=== PATIENT | male | born 1970 | race African-American/Black ===

== ENCOUNTER 2016-11-11 16:32 | Emergency (ER) | payer OTHER ==
[~2016-11-11] VITALS: Ht 180.3 cm; Wt 110.9 kg
[2016-11-11] MEDS ORDERED: ONDANSETRON 2MG/ML, 2ML IVPush ONE (17:00)
[2016-11-11] MEDS ORDERED: PLEASE ENTER ALLERGIES MC SCH ×2 (17:00)
[2016-11-11] MEDS ORDERED: SODIUM CHLORIDE FLUSH 10ML SYR IVF ONE ×2 (17:00)
[2016-11-11] MEDS ORDERED: NITROGLYCERIN SINGLE TAB 0.4 MG SL PRN (17:00)
[2016-11-11] MEDS ORDERED: [UNRECOGNIZED DRUG - REMARK] MC SCH (17:00)
[2016-11-11] MEDS ORDERED: SODIUM CHLORIDE 0.9% 1,000ML IVBOLUS ONE ×2 (17:00→18:30)
[2016-11-11] MEDS ORDERED: MORPHINE SULFATE 4 MG/ML, 1ML IVPush PRN (17:00)
[2016-11-11 17:09] LABS: BLOOD UREA NITROGEN 18 mg/dL (7-18)
[2016-11-11 17:14] LABS: IS PT STATUS REG ER OR PRE ER? YES
[2016-11-11 17:31] LABS: GIANT PLATELETS 1+; LARGE PLATELETS 1+
[2016-11-11 19:26] VITALS: BP 121/82
[2016-11-11 21:11] LABS: PATH.CAST-FLAG NOT PRESENT; SPERM-FLAG NOT PRESENT; SRC-FLAG NOT PRESENT; XTAL-FLAG NOT PRESENT; YLC-FLAG NOT PRESENT
== END 2016-11-11 20:49 | disposition home or self-care (01) ==
LOC: ED 18:08
DX: E11.65 Type 2 diabetes mellitus with hyperglycemia (principal)
CPT/HCPCS: 36415; 80048; 81001; 82010; 82040; 82800; 82962; 83880; 84484; 85025; 93005; 96360; 96361; 99285; J7030

== ENCOUNTER 2018-03-31 01:25 | Emergency (ER) | payer OTHER ==
[~2018-03-31] VITALS: Ht 193 cm; Wt 114.0 kg
[2018-03-31 01:29] VITALS: BP 137/99
[2018-03-31] MEDS ORDERED: LIDOCAINE 1%-EPI 1:100K, 30ML ONE (01:47)
[2018-03-31] MEDS ORDERED: BENZOCAINE 20% SPRAY 0.5ML ONE ×2 (01:47→01:48)
[2018-03-31] MEDS ORDERED: LIDOCAINE 1%-EPI 1:100K, 20ML INFIL ONE (02:00)
[2018-03-31] MEDS ORDERED: BENZOCAINE 20% SPRAY 0.5ML TP ONE (02:00)
[2018-03-31] MEDS ORDERED: AMOXICILLIN/CLAV 875-125MG TABLET ONE (02:27)
[2018-03-31] MEDS ORDERED: ONDANSETRON ODT 4 MG ONE (02:27)
[2018-03-31] MEDS ORDERED: DEXAMETHASONE 4 MG TABLET ONE (02:27)
[2018-03-31] MEDS ORDERED: IBUPROFEN 600 MG TABLET ONE (02:27)
[2018-03-31] MEDS ORDERED: IBUPROFEN 200 MG TABLET PO ONE (02:30)
[2018-03-31] MEDS ORDERED: DEXAMETHASONE 4 MG TABLET PO ONE (02:30)
[2018-03-31] MEDS ORDERED: ONDANSETRON ODT 4 MG PO ONE (02:30)
[2018-03-31] MEDS ORDERED: AMOXICILLIN/CLAV 875-125MG TABLET PO ONE (02:30)
[2018-03-31] MEDS ORDERED: CEFTRIAXONE 1,000 MG ONE (02:47)
[2018-03-31] MEDS ORDERED: CEFTRIAXONE 1,000 MG IM ONE (03:00)
== END 2018-03-31 03:08 | disposition home or self-care (01) ==
LOC: ED 02:21
DX: J36 Peritonsillar abscess (principal); E11.9 Type 2 diabetes mellitus without complications
CPT/HCPCS: 42700; 87070; 87205; 96372; 99284; J0696; J3490; Q0162; 99283

== ENCOUNTER 2019-05-18 16:09 | Emergency (ER) | payer OTHER ==
[~2019-05-18] VITALS: Ht 190.5 cm; Wt 111.9 kg
[2019-05-18] MEDS ORDERED: METF500T17 PO (19:32)
--- NOTE | 2019-05-18 19:32 | NUR ---
PT STATED BLOOD SUGAR WAS 290 SOMETHING THIS AM. HAS HAD FREQUENT URINATION LAST FEW DAYS, H/X T2DM. PROVIDED PT WITH GOWN, MONITORS APPLIED, SIDERAILS UP X2, CALL LIGHT WITHIN REACH. ERP AT BEDSIDE FOR EVAL
--- NOTE | 2019-05-18 19:47 | NUR ---
IV SITE STARTED, LABS DRAWN, IV FLUIDS STARTED. PROVIDED PT WITH URINE CUP FOR SAMPLE, PT STATED HE DOES NOT NEED TO URINATE AT THIS TIME THAT HE NEEDS 5 MINUTES. AWAITING LAB RESULTS
[2019-05-18 19:50] LABS: PH, VENOUS 7.398 pH (7.320-7.420)
[2019-05-18 19:56] LABS: BASOPHILS # (AUTO) 0.04 x10^3/uL (0-0.1); BASOPHILS % (AUTO) 1 % (0-1); EOSINOPHILS # (AUTO) 0.52 x10^3/uL (0-0.4); EOSINOPHILS % (AUTO) 8 % (1-7); LYMPHOCYTES # (AUTO) 2.27 x10^3/uL (1-3.4); LYMPHOCYTES % (AUTO) 36 % (22-44); MD NO; MEAN CORPUSCULAR HEMOGLOBIN 30.7 pg (27.5-34.5); MEAN CORPUSCULAR HGB CONC 34.1 g/dL (33.2-36.2); MEAN CORPUSCULAR VOLUME 89.9 fL (81-97); MEAN PLATELET VOLUME 10.3 fL (7.4-10.4); MONOCYTES # (AUTO) 0.41 x10^3/uL (0.2-0.8); MONOCYTES % (AUTO) 7 % (2-9); NEUTROPHILS # (AUTO) 3.15 x10^3/uL (1.8-6.8); NEUTROPHILS % (AUTO) 49 % (42-75); PLATELET COUNT 242 x10^3/uL (130-400); RED BLOOD COUNT 4.98 x10^6/uL (4.38-5.82); RED CELL DISTRIBUTION WIDTH 12.9 % (9.4-14.8)
[2019-05-18] MEDS ORDERED: SODIUM CHLORIDE 0.9% 1,000ML IVBOLUS ONE (20:00)
[2019-05-18] MEDS ORDERED: SODIUM CHLORIDE FLUSH 10ML SYR IVF ONE (20:00)
[2019-05-18 20:02] LABS: ALANINE AMINOTRANSFERASE 58 U/L (12-78); ALBUMIN 4.1 g/dL (3.4-5.0); ANION GAP 8 mmol/L (5-15); CHLORIDE 106 mmol/L (98-107); CREATININE 1.16 mg/dL (0.7-1.3)
[2019-05-18 20:04] LABS: ALKALINE PHOSPHATASE 84 U/L (45-117); BILIRUBIN,TOTAL 0.9 mg/dL (0.2-1.0); TOTAL PROTEIN 7.7 g/dL (6.4-8.2)
--- NOTE | 2019-05-18 20:11 | NUR ---
PT UP TO RR WITH STEADY GAIT
--- NOTE | 2019-05-18 20:22 | NUR ---
PT UNABLE TO VOID AT THSI TIME, REQUESTING WATER.ERP UPDATED, PROVIDED PT WITH WATER
[2019-05-18 20:24] LABS: ACETONE, SERUM Negative (Negative)
--- NOTE | 2019-05-18 20:45 | NUR ---
PT UP TO RR WITH STEADY GAIT
--- NOTE | 2019-05-18 20:52 | NUR ---
URINE SAMPLE TAKEN TO LAB
[2019-05-18 20:53] VITALS: BP 119/78
[2019-05-18 21:12] LABS: CULTURE INDICATED? NO; MICROSCOPIC NOT IND
== END 2019-05-18 21:23 | disposition home or self-care (01) ==
LOC: ED 21:10
DX: E11.65 Type 2 diabetes mellitus with hyperglycemia (principal); R35.8 Other polyuria
CPT/HCPCS: 36415; 80053; 81003; 82010; 82803; 82962; 83690; 85025; 96360; 99285; J7030

== ENCOUNTER 2020-05-02 03:36 | Emergency (ER) | payer OTHER ==
[~2020-05-02] VITALS: Ht 193 cm; Wt 111.0 kg
[~2020-05-02 03:36] MED LIST: METF500T17 PO
[2020-05-02] MEDS ORDERED: SODIUM CHLORIDE 0.9% 1,000ML IVBOLUS ONE (04:00)
--- NOTE | 2020-05-02 04:18 | NUR ---
PT HERE FOR HI BLOOD SUGAR AT HOME. PT HAS HX OF DM2. PT PLACED ON PULSE OX. PIV PLACED AND LABS DRAWN. FLUIDS RUNNING.. SPOUSE AT BEDSIDE. CALL LIGHT IN REACH
[2020-05-02 04:49] LABS: BASOPHILS % (AUTO) 1 % (0-1); EOSINOPHILS % (AUTO) 4 % (1-7); LYMPHOCYTES % (AUTO) 38 % (22-44); MEAN CORPUSCULAR HEMOGLOBIN 30.6 pg (27.5-34.5); MEAN CORPUSCULAR HGB CONC 34.8 g/dL (33.2-36.2); MONOCYTES % (AUTO) 8 % (2-9); NEUTROPHILS % (AUTO) 49 % (42-75); RED CELL DISTRIBUTION WIDTH 13.3 % (9.4-14.8)
[2020-05-02 04:58] LABS: ALBUMIN 3.9 g/dL (3.4-5.0); ANION GAP 7 mmol/L (5-15); CALCIUM 9.1 mg/dL (8.5-10.1); CHLORIDE 104 mmol/L (98-107)
[2020-05-02 05:02] LABS: ALANINE AMINOTRANSFERASE 59 U/L (12-78); ALKALINE PHOSPHATASE 94 U/L (45-117); BILIRUBIN,TOTAL 0.6 mg/dL (0.2-1.0); CREATININE 1.51 mg/dL (0.7-1.3); TOTAL PROTEIN 7.2 g/dL (6.4-8.2)
--- NOTE | 2020-05-02 05:23 | NUR ---
PT RESTING IN BED, PT ON MONITOR WITH PT VSS. PT DENIED ANY CURRENT WANTS OR NEEDS.
[2020-05-02] MEDS ORDERED: INSULIN SINGLE DOSE, ER ONE (05:39)
[2020-05-02 05:55] LABS: MD SCAN
[2020-05-02 05:57] LABS: PLATELET COUNT 200 x10^3/uL (130-400)
[2020-05-02] MEDS ORDERED: INSULIN REGULAR 100 UNITS/ML, 3ML VIAL SQ-INSULIN ONE (06:00)
--- NOTE | 2020-05-02 07:10 | NUR ---
PT RESTING IN BED. VSS. PT UPDATED ON PLAN OF CARE.
[2020-05-02 08:55] VITALS: BP 110/73
== END 2020-05-02 08:57 | disposition home or self-care (01) ==
LOC: ED 05:54
DX: E11.65 Type 2 diabetes mellitus with hyperglycemia (principal); T38.0X5A Adverse effect of glucocorticoids and synthetic analogues, initial encounter; I10 Essential (primary) hypertension; R35.0 Frequency of micturition; R53.83 Other fatigue; Y92.89 Other specified places as the place of occurrence of the external cause
CPT/HCPCS: 71045; 80053; 82962; 85025; 96360; 99284; J1815; J7030

== ENCOUNTER 2020-06-15 14:05 | Emergency (ER) | payer OTHER ==
[~2020-06-15] VITALS: Ht 193 cm; Wt 114.5 kg
[2020-06-15] MEDS ORDERED: ALBUTEROL/IPRATROPIUM 2.5MG/0.5MG, 3 ML ONE (14:48)
--- NOTE | 2020-06-15 14:55 | NUR ---
spoke with about neb
--- NOTE | 2020-06-15 15:02 | NUR ---
pt in bed neb given. no distress
[2020-06-15 15:47] VITALS: BP 123/79
--- NOTE | 2020-06-15 15:47 | NUR ---
pt resting in bed no distress
[2020-06-15] MEDS ORDERED: ALBUTEROL/IPRATROPIUM 2.5MG/0.5MG, 3 ML NPPB ONE (16:00)
[2020-06-15] MEDS ORDERED: ALBUTEROL/IPRATROPIUM 2.5MG/0.5MG, 3 ML NPPB SCH (16:00)
== END 2020-06-15 16:02 | disposition home or self-care (01) ==
LOC: ED 15:57
DX: J15.9 Unspecified bacterial pneumonia (principal); Z20.822 Contact with and (suspected) exposure to COVID-19; R05 Cough; R06.02 Shortness of breath; E11.9 Type 2 diabetes mellitus without complications
CPT/HCPCS: 71045; 87635; 93005; 94640; 99285; J7512; 82962